=== PATIENT | male | born 1945 | race Caucasian/White ===

== ENCOUNTER 2023-06-19 14:22 | Outpatient (CLI) | payer MEDICARE | END 2023-06-19 14:23 | disposition home or self-care (01) | LOC: CSHWCC 14:22 | PROVIDERS: ATTEND Physician Assistant | DX: E11.621 Type 2 diabetes mellitus with foot ulcer (principal); L97.402 Non-pressure chronic ulcer of unspecified heel and midfoot with fat layer exposed; L89.603 Pressure ulcer of unspecified heel, stage 3 | CPT/HCPCS: 97597; G0463; 99213 ==

== ENCOUNTER 2023-08-07 13:09 | Outpatient (CLI) | payer MEDICARE | END 2023-08-07 13:10 | disposition home or self-care (01) | LOC: CSHWCC 13:09 | PROVIDERS: ATTEND Preventive Medicine Undersea and Hyperbaric Medicine | DX: E11.621 Type 2 diabetes mellitus with foot ulcer (principal); L97.509 Non-pressure chronic ulcer of other part of unspecified foot with unspecified severity; L89.603 Pressure ulcer of unspecified heel, stage 3 | CPT/HCPCS: 29445; 97597; 97598 ==

== ENCOUNTER 2023-08-16 09:26 | Outpatient (CLI) | payer MEDICARE | END 2023-08-16 09:27 | disposition home or self-care (01) | LOC: CSHWCC 09:26 | PROVIDERS: ATTEND Preventive Medicine Undersea and Hyperbaric Medicine | DX: L89.603 Pressure ulcer of unspecified heel, stage 3 (principal); E11.621 Type 2 diabetes mellitus with foot ulcer; L97.509 Non-pressure chronic ulcer of other part of unspecified foot with unspecified severity | CPT/HCPCS: 97597 ==

== ENCOUNTER 2023-08-20 10:22 | Outpatient (CLI) | payer MEDICARE | END 2023-08-20 10:23 | disposition home or self-care (01) | LOC: CSHWCC 10:22 | PROVIDERS: ATTEND Physician Assistant | DX: E11.621 Type 2 diabetes mellitus with foot ulcer (principal); L89.603 Pressure ulcer of unspecified heel, stage 3 | CPT/HCPCS: 97597 ==

== ENCOUNTER 2023-08-23 10:58 | Outpatient (CLI) | payer MEDICARE | END 2023-08-23 10:59 | disposition home or self-care (01) | LOC: CSHWCC 10:58 | PROVIDERS: ATTEND Preventive Medicine Undersea and Hyperbaric Medicine | DX: L89.603 Pressure ulcer of unspecified heel, stage 3 (principal); E11.621 Type 2 diabetes mellitus with foot ulcer; L97.509 Non-pressure chronic ulcer of other part of unspecified foot with unspecified severity | CPT/HCPCS: 29445 ==

== ENCOUNTER 2023-08-30 10:23 | Outpatient (CLI) | payer MEDICARE | END 2023-08-30 10:24 | disposition home or self-care (01) | LOC: CSHWCC 10:23 | PROVIDERS: ATTEND Nurse Practitioner Family | DX: L89.603 Pressure ulcer of unspecified heel, stage 3 (principal); E11.621 Type 2 diabetes mellitus with foot ulcer; L97.519 Non-pressure chronic ulcer of other part of right foot with unspecified severity | CPT/HCPCS: 29445; 97597; G0463; 99213 ==

== ENCOUNTER 2023-09-04 08:49 | Outpatient (CLI) | payer MEDICARE | END 2023-09-04 08:50 | disposition home or self-care (01) | LOC: CSHWCC 08:49 | PROVIDERS: ATTEND Nurse Practitioner Family | DX: L89.603 Pressure ulcer of unspecified heel, stage 3 (principal); E11.621 Type 2 diabetes mellitus with foot ulcer; L97.509 Non-pressure chronic ulcer of other part of unspecified foot with unspecified severity | CPT/HCPCS: 97597 ==

== ENCOUNTER 2023-09-10 15:09 | Outpatient (CLI) | payer MEDICARE | END 2023-09-10 15:10 | disposition home or self-care (01) | LOC: CSHWCC 15:09 | PROVIDERS: ATTEND Nurse Practitioner Family | DX: E11.621 Type 2 diabetes mellitus with foot ulcer (principal); L89.603 Pressure ulcer of unspecified heel, stage 3 | CPT/HCPCS: 99212; G0463 ==

== ENCOUNTER 2024-01-01 12:46 | Outpatient (CLI) | payer MEDICARE | END 2024-01-01 12:47 | disposition home or self-care (01) | LOC: CSHWCC 12:46 | PROVIDERS: ATTEND Nurse Practitioner Family | DX: E11.621 Type 2 diabetes mellitus with foot ulcer (principal); L97.512 Non-pressure chronic ulcer of other part of right foot with fat layer exposed | CPT/HCPCS: 11042 ==